=== PATIENT | female | born 2000 | race African-American/Black ===

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

== ENCOUNTER 2018-10-14 00:41 | Inpatient (IN) ==
[2018-10-14 01:27] LABS: Baso # (Auto) 0.1 th/mm3 (0.0-0.2); Baso % (Auto) 0.4 % (0.0-2.0); Eos # (Auto) 0.1 th/mm3 (0.0-0.4); Eos % (Auto) 0.6 % (0.0-4.0); Hematocrit 35.5 % (35.0-46.0); Hemoglobin 11.5 gm/dL (11.6-15.3); Lymph # (Auto) 1.8 th/mm3 (1.0-4.8); Mean Corpuscular HGB Conc 32.5 % (32.0-36.0); Mean Corpuscular Hemoglobin 26.3 pg (27.0-34.0); Mean Corpuscular Volume 80.8 fL (80.0-100.0); Mean Platelet Volume 8.2 fL (7.0-11.0); Mono % (Auto) 8.5 % (0.0-8.0); Neut % (Auto) 75.5 % (16.0-70.0); Platelet Count 281 th/mm3 (150-450); Red Blood Count 4.39 mil/mm3 (4.00-5.30); Red Cell Distribution Width 14.5 % (11.6-17.2); White Blood Count 11.9 th/mm3 (4.0-11.0)
[2018-10-14 01:45] LABS: Alanine Aminotransferase 13 U/L (9-42); Albumin 3.5 g/dL (3.4-5.0); Anion Gap 7 meq/L (5-15); Aspartate Aminotransferase 11 U/L (16-38); Blood Urea Nitrogen 9 mg/dL (7-18); Calcium 8.4 mg/dL (8.5-10.1); Chloride 106 meq/L (98-107); Glomerular Filtration Rate Greater Than 89 mL/min (>89); Glucose,Random 90 mg/dL (74-106); Potassium 3.7 meq/L (3.5-5.1); Sodium 140 meq/L (136-145)
[2018-10-14 01:55] LABS: Alkaline Phosphatase 64 U/L (45-117); Total Protein 8.2 g/dL (6.4-8.2)
[2018-10-14 02:27] LABS: Amphetamine Screen,Urine Neg (Neg); Barbiturate Screen,Urine Neg (Neg); Cannabinoid Screen,Urine Pos (Neg); Cocaine Screen,Urine Neg (Neg)
[2018-10-14 02:31] LABS: Opiate Screen,Urine Neg (Neg)
--- NOTE | 2018-10-14 02:48 | ED ---
HPI General Chief Complaint: Psychiatric Symptoms Stated Complaint: psych eval/dbpd Time Seen by Provider: 10/14/18 00:55 Source: patient and police Mode of arrival: other (Police) Limitations: no limitations History of Present Illness HPI Narrative: Patient presents to our facility under a Sol act by law enforcement. Patient states that she has felt depressed recently and has had thoughts of wanting to Hurt herself. Patient states that she wants to slice her wrists open. 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 Patient states that she did not act on these thoughts and is not tried to harm herself by physical means or by taking anything like medications or alcohol. Upon arrival patient has no complaints MD complaint: Reports suicidal ideation Onset (ago): day(s) (2) Duration: constant History of same: Yes Relieving factors: none Exacerbating factors: none Associated psychiatric symptoms: Reports depression Associated symptoms: Denies confusion, headache, shortness of breath, nausea, vomiting and syncope Treatments prior to arrival: Reports placed on mental health hold Related Data Home Medications Medication Instructions Recorded Confirmed No Known Home Medications 10/14/18 10/14/18 Allergies Allergy/AdvReac Type Severity Reaction Status Date / Time No Known Allergies Allergy Verified 10/14/18 00:46 Review of Systems ROS: all other systems reviewed are negative [facility] Medical History Medical History Patient denies medical problems (Acute) Surgical History Surgical History No history of previous surgery (Acute) Social History Social History Substance History: Active Abuse Second Hand Smoke Exposure: No Smoking Status: Never smoker How Often Do You Have a Drink Containing Alcohol: Monthly or less Recent Travel in [facility] within the Last 8 Weeks: No Recent Out of Country Travel within the Last 8 Weeks: No Substance Abuse Detail Marijuana: Substance Use Status: Active Route Used Substance Abuse: By Mouth and Inhalation Reason for Use: Calm Down Immunization History Tetanus Immunization: Unsure Exam Const General: cooperative Orientation: alert, awake and oriented x3 HENMT Head: normocephalic and atraumatic Nose: no nasal discharge and no epistaxis Mouth: moist mucous membranes Eyes Sclera: normal sclerae Pupils: PERRL Neck Neck: trachea midline and no JVD Resp Effort & Inspection: no use of accessory muscles Auscultation: clear to auscultation bilaterally Cardio Rate: regular rate Rhythm: regular rhythm Heart Sounds: no murmurs GI Inspection: non-distended Palpation: soft, no hepatosplenomegaly and nontender Skin General: dry skin (warm) Neuro General: alert and awake Cranial Nerves: other Speech: speech normal Motor: no movement abnormalities noted Extrem General: normal to inspection, no clubbing, no cyanosis and no edema Psych Mood: congruent mood Affect: normal affect Judgment: judgment good Course Initial Documented Vital Signs Temperature 97.8 F 10/14/18 00:47 Pulse Rate 79 10/14/18 00:47 Respiratory Rate 16 10/14/18 00:47 Blood Pressure 125/78 10/14/18 00:47 Pulse Oximetry 99 10/14/18 00:47 Last Documented Vital Signs Temperature 97.8 F 10/14/18 00:47 Pulse Rate 79 10/14/18 00:47 Respiratory Rate 16 10/14/18 00:47 Blood Pressure 125/78 10/14/18 00:47 Pulse Oximetry 99 10/14/18 00:47 Medical Decision Making MDM Narrative Medical decision making narrative: Patient presents to our facility under a Sol act by law enforcement. Patient states that she has felt depressed recently and has had thoughts of wanting to Hurt herself. Patient states that she wants to slice her wrists open. 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 Patient states that she did not act on these thoughts and is not tried to harm herself by physical means or by taking anything like medications or alcohol. Upon arrival patient has no complaints Patient has a blood pressure of 125/78, pulse is 79, temperature is 97.8, O2 sat is 99 on room air Physical exam is unremarkable. Patient has no signs of self-harm. She is calm and cooperative Patient received basic lab work along with a urine drug screen/tox screen Lab work is unremarkable. Urine drug screen is positive for cannabinoids Patient is medically cleared at 0 230 Await psychiatric evaluation in the morning Medical Screen Exam Complete: Yes Emergency Medical Condition: Yes Lab Data Lab results reviewed: Yes I reviewed the patient's lab results. Result diagrams: 10/14/18 00:51 10/14/18 00:51 Lab Results 10/14/18 10/14/18 10/14/18 Range/Units 00:51 00:51 00:51 WBC 11.9 H (4.0-11.0) th/mm3 RBC 4.39 (4.00-5.30) mil/mm3 Hgb 11.5 L (11.6-15.3) gm/dL Hct 35.5 (35.0-46.0) % MCV 80.8 (80.0-100.0) fL MCH 26.3 L (27.0-34.0) pg MCHC 32.5 (32.0-36.0) % RDW 14.5 (11.6-17.2) % Plt Count 281 (150-450) th/mm3 MPV 8.2 (7.0-11.0) fL Neut % (Auto) 75.5 H (16.0-70.0) % Lymph % (Auto) 15.0 (9.0-44.0) % [place] % (Auto) 8.5 H (0.0-8.0) % Eos % (Auto) 0.6 (0.0-4.0) % Baso % (Auto) 0.4 (0.0-2.0) % Neut # (Auto) 9.0 H (1.8-7.7) th/mm3 Lymph # (Auto) 1.8 (1.0-4.8) th/mm3 [place] # (Auto) 1.0 H (0.0-0.9) th/mm3 Eos # (Auto) 0.1 (0.0-0.4) th/mm3 Baso # (Auto) 0.1 (0.0-0.2) th/mm3 WBC Differential . Differential Comment Auto diff final Sodium 140 (136-145) meq/L Potassium 3.7 (3.5-5.1) meq/L Chloride 106 (98-107) meq/L Carbon Dioxide 27.0 (21.0-32.0) meq/L Anion Gap 7 (5-15) meq/L BUN 9 (7-18) mg/dL Creatinine 0.69 (0.50-1.00) mg/dL Estimated GFR Greater than 89 (>89) mL/min Random Glucose 90 (74-106) mg/dL Calcium 8.4 L (8.5-10.1) mg/dL Total Bilirubin 0.2 (0.2-1.0) mg/dL AST 11 L (16-38) U/L ALT 13 (9-42) U/L Alkaline Phosphatase 64 (45-117) U/L Total Protein 8.2 (6.4-8.2) g/dL Albumin 3.5 (3.4-5.0) g/dL TSH 4.360 H (0.358-3.740) uIU/mL Salicylates Less than 1.7 L (2.8-20.0) mg/dL Urine Opiates Screen (Neg) Acetaminophen Less than 2.0 L (10.0-30.0) mcg/mL Ur Barbiturates Screen (Neg) Ur Amphetamines Screen (Neg) U Benzodiazepines Scrn (Neg) Urine Cocaine Screen (Neg) U Cannabinoids Screen (Neg) Serum Alcohol Less than 3 (0-5) mg/dL 10/14/18 Range/Units Unknown WBC (4.0-11.0) th/mm3 RBC (4.00-5.30) mil/mm3 Hgb (11.6-15.3) gm/dL Hct (35.0-46.0) % MCV (80.0-100.0) fL MCH (27.0-34.0) pg MCHC (32.0-36.0) % RDW (11.6-17.2) % Plt Count (150-450) th/mm3 MPV (7.0-11.0) fL Neut % (Auto) (16.0-70.0) % Lymph % (Auto) (9.0-44.0) % [place] % (Auto) (0.0-8.0) % Eos % (Auto) (0.0-4.0) % Baso % (Auto) (0.0-2.0) % Neut # (Auto) (1.8-7.7) th/mm3 Lymph # (Auto) (1.0-4.8) th/mm3 [place] # (Auto) (0.0-0.9) th/mm3 Eos # (Auto) (0.0-0.4) th/mm3 Baso # (Auto) (0.0-0.2) th/mm3 WBC Differential Differential Comment Sodium (136-145) meq/L Potassium (3.5-5.1) meq/L Chloride (98-107) meq/L Carbon Dioxide (21.0-32.0) meq/L Anion Gap (5-15) meq/L BUN (7-18) mg/dL Creatinine (0.50-1.00) mg/dL Estimated GFR (>89) mL/min Random Glucose (74-106) mg/dL Calcium (8.5-10.1) mg/dL Total Bilirubin (0.2-1.0) mg/dL AST (16-38) U/L ALT (9-42) U/L Alkaline Phosphatase (45-117) U/L Total Protein (6.4-8.2) g/dL Albumin (3.4-5.0) g/dL TSH (0.358-3.740) uIU/mL Salicylates (2.8-20.0) mg/dL Urine Opiates Screen Neg (Neg) Acetaminophen (10.0-30.0) mcg/mL Ur Barbiturates Screen Neg (Neg) Ur Amphetamines Screen Neg (Neg) U Benzodiazepines Scrn Neg (Neg) Urine Cocaine Screen Neg (Neg) U Cannabinoids Screen Pos H (Neg) Serum Alcohol (0-5) mg/dL Discharge Plan Discharge Disposition Patient Disposition: Sign Out(ED Internal Use Only) Discharge Condition Condition: Stable Discharge Details Diagnosis: Suicidal ideation Physicians Team ED Provider: Mago Rodrigues ED Midlevel Provider: Krupa Gaxiola Primary Care Provider: UNKNOWN, Rxs /Orders / Referrals /Forms Prescriptions: No Action No Known Home Medications RF: 0 Status ED Status: Medically Cleared
[2018-10-14] MEDS ORDERED: Acetaminophen 500 MG Tablet PO ONE (04:55)
[2018-10-14] MEDS ORDERED: Aluminum/Magnesium/Simethacone Susp 30 ML UDC PO PRN (12:35)
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
[2018-10-14] MEDS: Sertraline 50 MG Tablet PO SCH (13:36)
[2018-10-14] MEDS: Acetaminophen 325 MG Tablet PO PRN (15:22)
[2018-10-14] MEDS ORDERED: Influenza (Quadrivalent) Vaccine 0.5 ML Syringe IM ONE (16:00)
[2018-10-15] MEDS: Acetaminophen 325 MG Tablet PO PRN ×2 (00:15→18:38)
[2018-10-15 05:33] VITALS: O2SAT 98
[2018-10-15] MEDS: Sertraline 50 MG Tablet PO SCH (10:02)
[2018-10-15 16:51] VITALS: BP 122/75; PULSE 70; RESP 18; TEMP 98.4
[2018-10-16] MEDS: Acetaminophen 325 MG Tablet PO PRN (00:08)
--- NOTE | 2018-10-16 07:26 | P.PNPSY ---
Subjective Chief Complaint: depression Remarks: October 15, 2018 (late entry October 16, 2018) Subjective: Patient describes disturbed relationship with her 23-year-old sister. She has both suicidal and homicidal statements, but admits today she has no real intent to harm herself or anyone else. RN in charge of her case and record was reviewed. Patient does not appear depressed but clearly needed to talk to someone. Review of Systems October 15, 2017 Review of systems is negative for new or significant complaints Mental Status Examination Appearance: Appropriate Consciousness: Alert Orientation: x4 Motor Activity: Normal gait Speech: Unremarkable Language: Adequate Fund of Knowledge: Adequate Attention and Concentration: Adequate Memory: Unremarkable Mood: Angry, Sad (Tearful) Affect: Other (Slight increased range and intensity) Thought Process & Associations: Intact, Linear Thought Content: Appropriate, Other (Thoughts of killing her sister and herself prior to admission, but now denies.) Hallucination Type: None Delusion Type: None Suicidal Ideation: No Suicidal Plan: No (Patient admits she controls her moods with marijuana and can become very angry and say things she does not mean.) Suicidal Intention: No Homicidal Ideation: No Homicidal Plan: No Homicidal Intention: No Insight: Poor Judgment: Poor Assessment and Plan - Plan Plan: Estimated LOS: 5 [] days At this time patient meets criteria for involuntary psychiatric hospitalization of the Sol act I will do first opinion request second opinion. Therefore she does have capacity. I will start patient on Zoloft 25 mg daily. Hopefully will get counseling arranged for this lady help her reprocess on the relationship issue she has with his sister that might lead to dangerous situations Justification for Continued Inpatient Stay: October 15, 2018 late entry October 16, 2018 Patient requires additional time to assess dangerousness to self and others. Request Healthcare Surrogate/Guardian Advocate?: No
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
== END 2018-10-16 11:45 | disposition home or self-care (01) | DRG 881 ==
LOC: NEPE 00:41 → NEDA 13:09 → H260 14:03
PROVIDERS: ADMIT Psychiatry & Neurology Child & Adolescent Psychiatry; ATTEND Psychiatry & Neurology Child & Adolescent Psychiatry
CPT/HCPCS: 80053; 80307; 84443; 84703; 85025; 90658; 90686; 90791; 99285; Q0163; Q2038